=== PATIENT | female | born 1990 ===

== ENCOUNTER 2017-11-09 23:32 | Emergency (ER) | payer OTHER ==
[~2017-11-09] VITALS: Ht 170.2 cm; Wt 93.4 kg
[~2017-11-09 23:32] MED LIST: MUCINEX D1 TAB.SR .; SINGULAIR 5MG5 MG
== END 2017-11-10 01:30 | disposition home or self-care (01) ==
LOC: ER 23:32
DX: T54.91XA Toxic effect of unspecified corrosive substance, accidental (unintentional), initial encounter (principal); T26.82XA Corrosions of other specified parts of left eye and adnexa, initial encounter; Y93.E9 Activity, other interior property and clothing maintenance; Y92.098 Other place in other non-institutional residence as the place of occurrence of the external cause; Y99.8 Other external cause status

== ENCOUNTER → 2020-05-14 | Emergency (ER) | payer OTHER ==
[~2020-05-14] VITALS: Ht 152.4 cm; Wt 98.0 kg
[~2020-05-14] MED LIST changes: +KEFLEX500 MG PO; +ORPHENADRINE C100 MG PO
== END | disposition home or self-care (01) ==
LOC: ER 01:44
DX: N39.0 Urinary tract infection, site not specified (principal); M54.5 Low back pain

== ENCOUNTER 2020-07-12 09:36 | Outpatient (CLI) | payer OTHER | END 2020-07-12 09:47 | disposition home or self-care (01) | LOC: RAD 09:36 | PROVIDERS: ATTEND Orthopaedic Surgery Orthopaedic Surgery of the Spine | DX: Q67.5 Congenital deformity of spine (principal) ==

== ENCOUNTER 2020-09-14 09:15 | Outpatient (CLI) | payer OTHER | END 2020-09-14 09:37 | disposition home or self-care (01) | LOC: RAD 09:15 | PROVIDERS: ATTEND General Practice | DX: M54.2 Cervicalgia (principal) ==

== ENCOUNTER 2020-10-26 08:43 | Outpatient (CLI) | payer OTHER | END 2020-10-26 09:08 | disposition home or self-care (01) | LOC: TOM 08:43 | DX: R10.9 Unspecified abdominal pain (principal); K76.0 Fatty (change of) liver, not elsewhere classified ==